=== PATIENT | female | born 1950 | race Two or more races ===

== ENCOUNTER 2017-08-11 21:09 | Observation (INO) | payer BC ==
[~2017-08-11] VITALS: Ht 167.6 cm; Wt 83.9 kg
[~2017-08-11 21:09] MED LIST: MUCINEX COLD L118 ML PO
[2017-08-11 21:48] LABS: BASOPHIL (%) 1.1 % (0-1); BASOPHIL COUNT 0.1 K/uL (0-0.1); EOSINOPHIL (%) 3.8 % (0-5); EOSINOPHIL COUNT 0.3 K/uL (0-0.3); HEMATOCRIT 42.6 % (36.0-46.0); HEMOGLOBIN 14.8 G/DL (11.9-15.5); IMMATURE GRANULOCYTE (%) 0.8 % (0.0-0.7); LYMPHOCYTE COUNT 2.8 K/uL (1.0-2.8); MCH 33.1 PG (29.0-34.0); MCHC 34.7 G/DL (30.0-36.0); MCV 95.3 FL (83-99); MONOCYTE COUNT 0.5 K/uL (0-0.8); NEUTROPHIL (%) 44.3 % (45-76); NEUTROPHIL COUNT 2.9 K/uL (1.8-6.4); PLATELET COUNT 258 K/uL (156-360); RBC DIS.WIDTH-CV 12.7 % (11.8-14.6); RBC DIS.WIDTH-SD 43.8 % (39-53); RED BLOOD COUNT 4.47 M/uL (3.80-5.20); WHITE BLOOD COUNT 6.6 K/uL (4.1-10.2)
[2017-08-11 21:56] LABS: INTER. NORMALIZED RATIO 0.9
[2017-08-11 21:59] LABS: PTT 25.9 SEC (25-37)
[2017-08-11 22:00] LABS: AMYLASE 72 IU/L (1-118); CHLORIDE 103 mEq/L (99-109); POTASSIUM 3.4 mEq/L (3.7-5.4); SODIUM 142 mEq/L (136-147)
[2017-08-11 22:01] LABS: GLUCOSE 124 mg/dL (70-99)
[2017-08-11 22:05] LABS: CREATININE 0.8 mg/dL (0.6-1.3); GFR ESTIMATE (CALCULATED) > 59 mL/min/; SERUM ETHYL ALCOHOL < 10 mg/dL
[2017-08-11 22:06] LABS: UREA NITROGEN (BUN) 13 mg/dL (9-23)
[2017-08-11 22:08] LABS: LIPASE 44 U/L (1.0-51.0)
[2017-08-11 22:10] LABS: TROP-I INTERPRETATION NEGATIVE; TROPONIN-I < 0.01 ng/mL (0.0-0.30)
[2017-08-11 22:40] LABS: APPEARANCE SL.HAZY ((CLEAR)); BILIRUBIN NEGATIVE; BLOOD NEGATIVE; COLOR YELLOW ((YELLOW)); GLUCOSE (STRIP) NEGATIVE; KETONES NEGATIVE; LEUKOCYTES SMALL; NITRITE NEGATIVE; PROTEIN (STRIP) NEGATIVE; SPECIFIC GRAVITY 1.032 (1.000-1.030); UROBILINOGEN 0.2 MG/DL (0.2-1.0)
[2017-08-11 22:48] LABS: AMPHETAMINE NEGATIVE (500 ng/mL); BACTERIA RARE /HPF; BARBITURATES PRESUMPTIVE POSITIVE (200 ng/mL); BENZODIAZEPINES NEGATIVE (150 ng/mL); BUPRENORPHINE NEGATIVE (10 ng/mL); COCAINE NEGATIVE (150 ng/mL); EPITHELIAL CELLS RARE /HPF; HYALINE CASTS 0-5 /LPF; METHADONE NEGATIVE (200 ng/mL); METHAMPHETAMINE NEGATIVE (500 ng/mL); MUCUS NONE SEEN /LPF; OPIATES (MORPHINE) NEGATIVE (100 ng/mL); OXYCODONE NEGATIVE (100 ng/mL); PHENCYCLIDINE NEGATIVE (25 ng/mL); PROPOXYPHENE NEGATIVE (300 ng/mL); RED BLOOD CELLS 0-5 /HPF (0-5); THC CANNABINOIDS NEGATIVE (50 ng/mL); TRICYCLIC ANTIDEPRESSANTS NEGATIVE (300 ng/mL); UCUL ADDED? YES
[2017-08-11] MEDS ORDERED: CEFTIN250 MG PO (23:43)
[2017-08-11] MEDS ORDERED: TOPIRAMATE50 MG PO (23:44)
[2017-08-11] MEDS ORDERED: MELOXICAM7.5 MG PO (23:44)
[2017-08-11] MEDS ORDERED: DESVENLAFAXINE100 M3 PO (23:45)
[2017-08-11] MEDS ORDERED: ZOLPIDEM TART6.25 MG PO (23:47)
[2017-08-11] MEDS ORDERED: PRIMIDONE50 MG PO (23:48)
[2017-08-11] MEDS ORDERED: ONE DAILY MULT1 EACH PO (23:54)
[2017-08-12] MEDS ORDERED: HAIR, SKIN & N1 EAC2 PO (00:03)
[2017-08-12] MEDS ORDERED: BONE ESSENT166.75 MG PO (00:04)
[2017-08-12 02:14] LABS: HEMATOCRIT 36.3 % (36.0-46.0); MCH 32.9 PG (29.0-34.0); MCHC 34.7 G/DL (30.0-36.0); MCV 94.8 FL (83-99); PLATELET COUNT 237 K/uL (156-360); RBC DIS.WIDTH-CV 12.8 % (11.8-14.6); RBC DIS.WIDTH-SD 43.8 % (39-53); RED BLOOD COUNT 3.83 M/uL (3.80-5.20); WHITE BLOOD COUNT 6.1 K/uL (4.1-10.2)
[2017-08-12 02:15] LABS: HEMOGLOBIN 12.6 G/DL (11.9-15.5)
[2017-08-12 03:01] LABS: HDL CHOLESTEROL 56 MG/DL (Desirable>=50); LDL CHOLESTEROL 134 mg/dL (Desirable<100); NON-HDL CHOLESTEROL 204 mg/dL (Desirable<160); TOTAL CHOLESTEROL 260 mg/dL (Desirable<200); TRIGLYCERIDES 348 MG/DL (Normal: <150)
[2017-08-12 06:25] VITALS: BP 176/89
[2017-08-12 10:00] LABS: HEMOGLOBIN A1c (GLYCOHEMOGLOB) 5.8 % (Below 5.7)
[2017-08-12 11:24] VITALS: BP 138/78
[2017-08-12] MEDS ORDERED: ASPIR 8181 M1 PO (16:06)
[2017-08-12] MEDS ORDERED: LIPITOR20 MG PO (16:06)
[2017-08-12 16:23] VITALS: BP 172/79
== END 2017-08-12 17:16 | disposition home or self-care (01) ==
LOC: EME 21:09 → 5SOUTH 23:58 → EDOF 23:58 → ENRESERV 08-12 00:02 → 5SOUTH 08-12 06:02
PROVIDERS: Emergency Medicine; Hospitalist
DX: G45.9 Transient cerebral ischemic attack, unspecified (principal); I10 Essential (primary) hypertension; Z90.49 Acquired absence of other specified parts of digestive tract; Z90.710 Acquired absence of both cervix and uterus; Z88.5 Allergy status to narcotic agent; Z88.2 Allergy status to sulfonamides; Z66 Do not resuscitate
CPT/HCPCS: 70450; 70496; 70498; 70551; 80047; 80048; 80061; 81003; 82150; 83036; 83690; 84484; 84999; 85025; 85027; 85610; 85730; 86850; 86900; 86901; 87086; 93005; G0378; G0480; J1650; J7040